=== PATIENT | male | born 1950 | race Caucasian/White ===

== ENCOUNTER 2017-06-28 07:33 | Day surgery (SDC) | payer MEDICARE, OTHER ==
[~2017-06-28] VITALS: Ht 193 cm; Wt 106.6 kg
[~2017-06-28 07:33] MED LIST: ALEN70TA3 PO; AMLO5TAB88 PO; ATOR20TA PO; CHOL100046 PO; COREG PO; LAMIS2 PO; RIVA20TA PO
[2017-06-28] MEDS ORDERED: LOSA50TA20 PO (08:48)
[2017-06-28] MEDS ORDERED: DOXA2TAB PO (08:48)
[2017-06-28] MEDS ORDERED: ASPI-1159 PO (08:48)
[2017-06-28] MEDS ORDERED: ASPIRIN/SOD BICARB/CITRIC ACID 324MG TAB EFF ONE (08:50)
[2017-06-28] MEDS ORDERED: MIDAZOLAM HCL 2 MG/2 ML VIAL ONE ×2 (09:18→09:50)
[2017-06-28] MEDS ORDERED: LIDOCAINE HCL 1% 20ML VIAL (Pyxis) INJ ONE (09:19)
[2017-06-28] MEDS ORDERED: IODIXANOL 320MG/ML 100 ML BOTTLE IV ONE ×2 (09:19→10:52)
[2017-06-28] MEDS ORDERED: FENTANYL CITRATE/PF 50MCG/ML 2ML VIAL ONE (09:19)
[2017-06-28] MEDS ORDERED: HEPARIN SODIUM 1,000 UNIT/1ML VIAL IV ONE ×3 (09:32→10:33)
[2017-06-28] MEDS ORDERED: HYDROMORPHONE HCL/PF 2MG/ML (OR) ONE (10:12)
[2017-06-28] MEDS ORDERED: HYDRALAZINE 20MG/ML VIAL ONE (11:06)
[2017-06-28] MEDS ORDERED: ONDANSETRON HCL 4MG/2ML VIAL IV PRN (11:15)
[2017-06-28] MEDS ORDERED: ACETAMINOPHEN 325MG TABLET PO PRN (11:15)
[2017-06-28] MEDS ORDERED: MORPHINE SULFATE 2 MG/ML CPJ (NOT FOR IM USE) IV PRN (11:15)
[2017-06-28] MEDS ORDERED: NITROGLYCERIN 50MCG/ML 10ML VIAL (CATH LAB) IV ONE (14:38)
[2017-06-28] MEDS ORDERED: NICARDIPINE 100MCG/ML 10ML VIAL (CATH LAB) IV ONE (14:38)
== END 2017-06-28 16:01 | disposition home or self-care (01) ==
LOC: CCL 07:33
PROVIDERS: ATTEND Specialist
DX: I25.10 Atherosclerotic heart disease of native coronary artery without angina pectoris (principal); I10 Essential (primary) hypertension; Z88.0 Allergy status to penicillin; Z88.8 Allergy status to other drugs, medicaments and biological substances
CPT/HCPCS: 85347; 93458; 93571; 99152; 99153; C1769; C1887; C1893; J0360; J1170; J1644; J2250; J3010; J3490; Q9967

== ENCOUNTER 2019-11-27 06:24 | Day surgery (SDC) | payer MEDICARE, OTHER ==
[~2019-11-27 06:24] MED LIST changes: +ASPI-1497 PO; +DOXA2TAB PO; +LOSA50TA41 PO
[2019-11-27] MEDS ORDERED: COR3 MT (07:45)
[2019-11-27] MEDS ORDERED: ERGO2000 PO (07:45)
[2019-11-27] MEDS ORDERED: OLME40TA11 MT (07:45)
[2019-11-27] MEDS ORDERED: MIDAZOLAM HCL 2 MG/2 ML VIAL ONE (08:03)
[2019-11-27] MEDS ORDERED: FENTANYL CITRATE/PF 50MCG/ML 2ML VIAL ONE (08:03)
[2019-11-27] MEDS ORDERED: ASPIRIN/SOD BICARB/CITRIC ACID 324MG TAB EFF ONE (08:04)
[2019-11-27] MEDS ORDERED: LIDOCAINE HCL 1% 20ML VIAL (Pyxis) INJ ONE (08:04)
[2019-11-27] MEDS ORDERED: IOHEXOL-300 100 ML BOTTLE ONE (08:04)
[2019-11-27] MEDS ORDERED: IODIXANOL 320MG/ML 100 ML BOTTLE IV ONE ×2 (08:04→09:10)
[2019-11-27] MEDS ORDERED: ACETAMINOPHEN 325MG TABLET PO PRN (09:45)
[2019-11-27] MEDS ORDERED: ONDANSETRON HCL 4MG/2ML INJ IV PRN (09:45)
[2019-11-27] MEDS ORDERED: ATROPINE SULFATE 1MG/10ML SYR IV PRN (09:45)
[2019-11-27] MEDS ORDERED: MORPHINE SULFATE 2 MG/ML CPJ (NOT FOR IM USE) IV PRN (09:45)
[2019-11-27] MEDS ORDERED: AMLODIPINE 5MG TABLET PO SCH (10:45)
[2019-11-27] MEDS ORDERED: NICARDIPINE 100MCG/ML 10ML VIAL (CATH LAB) IV ONE (11:51)
[2019-11-27] MEDS ORDERED: HEPARIN SODIUM 1,000 UNIT/1ML VIAL IV ONE (11:51)
[2019-11-27] MEDS ORDERED: NITROGLYCERIN 50MCG/ML 10ML VIAL (CATH LAB) IV ONE (11:51)
== END 2019-11-27 15:35 | disposition home or self-care (01) ==
LOC: CCL 06:24
PROVIDERS: ATTEND Specialist
DX: I25.10 Atherosclerotic heart disease of native coronary artery without angina pectoris (principal); I10 Essential (primary) hypertension; E78.5 Hyperlipidemia, unspecified; Z79.899 Other long term (current) drug therapy; Z79.82 Long term (current) use of aspirin; Z88.0 Allergy status to penicillin; Z88.8 Allergy status to other drugs, medicaments and biological substances; Z72.89 Other problems related to lifestyle; Z82.49 Family history of ischemic heart disease and other diseases of the circulatory system
CPT/HCPCS: 85347; 93454; 93571; 99152; 99153; C1769; C1887; C1893; J1644; J2250; J3010; J3490; Q9967; G0500

== ENCOUNTER 2020-01-08 09:06 | Inpatient (IN) | payer MEDICARE, OTHER ==
[~2020-01-08] VITALS: Ht 182.9 cm; Wt 110.8 kg
[~2020-01-08 09:06] MED LIST changes: +COR3 MT; +ERGO2000 PO; +OLME40TA11 MT
[2020-01-08] MEDS ORDERED: CARV6.2548 PO (10:07)
[2020-01-08] MEDS ORDERED: NITR0.4T49 SL (10:07)
[2020-01-08] MEDS ORDERED: ERGO500013 PO (10:07)
[2020-01-08] MEDS ORDERED: DOCU-138 PO (10:07)
[2020-01-08] MEDS ORDERED: IODIXANOL 320MG/ML 100 ML BOTTLE IV ONE ×2 (12:53→14:00)
[2020-01-08] MEDS ORDERED: LIDOCAINE HCL 1% 20ML VIAL (Pyxis) INJ ONE (12:54)
[2020-01-08] MEDS ORDERED: FENTANYL CITRATE/PF 50MCG/ML 2ML VIAL ONE (12:54)
[2020-01-08] MEDS ORDERED: MIDAZOLAM HCL 2 MG/2 ML VIAL ONE (12:54)
[2020-01-08] MEDS ORDERED: HEPARIN SODIUM 1,000 UNIT/1ML VIAL IV ONE (13:18)
[2020-01-08] MEDS ORDERED: IOHEXOL-300 100 ML BOTTLE ONE (13:53)
[2020-01-08 13:59] LABS: CHLORIDE 100 mEq/L (98-107)
[2020-01-08] MEDS ORDERED: CLOPIDOGREL 75MG TABLET ONE (14:05)
[2020-01-08] MEDS ORDERED: ASPIRIN/SOD BICARB/CITRIC ACID 324MG TAB EFF ONE (14:21)
[2020-01-08] MEDS ORDERED: ATROPINE SULFATE 1MG/10ML SYR IV PRN (14:30)
[2020-01-08] MEDS ORDERED: CLOPIDOGREL 75MG TABLET PO NR (14:30)
[2020-01-08] MEDS ORDERED: ONDANSETRON HCL 4MG/2ML INJ IV PRN (14:30)
[2020-01-08] MEDS ORDERED: ACETAMINOPHEN 325MG TABLET PO PRN (17:49)
[2020-01-08] MEDS ORDERED: MORPHINE SULFATE 2 MG/ML CPJ (NOT FOR IM USE) IV PRN ×2 (17:50)
[2020-01-08] MEDS ORDERED: LOSARTAN POTASSIUM 25 MG TABLET PO SCH (18:30)
[2020-01-08 18:41] VITALS: BP 192/66
[2020-01-08 20:00] VITALS: BP 165/87
[2020-01-08 20:40] VITALS: BP 162/87
[2020-01-08] MEDS ORDERED: ATORVASTATIN CALCIUM 20MG TABLET PO SCH (21:00)
[2020-01-08] MEDS: CARVEDILOL 3.125 MG TABLET PO SCH (21:05)
[2020-01-08 21:36] LABS: HEMATOCRIT 38.1 % (42.0-52.0); MEAN CORPUSCULAR HEMOGLOBIN 33.7 pg (28.0-32.0); MEAN CORPUSCULAR VOLUME 98.4 fL (80.0-94.0); PLATELET 199 x1000/uL (130-400); RED BLOOD CELL COUNT 3.87 mill/uL (4.7-6.1)
[2020-01-08 21:42] VITALS: BP 151/77
[2020-01-09] VITALS (9 sets, daily range): BP systolic 156–181; BP diastolic 64–97
[2020-01-09] MEDS: HYDRALAZINE 20MG/ML VIAL IV PRN ×2 (04:15→14:49)
[2020-01-09 06:22] LABS: HEMOGLOBIN. 13.6 g/dL (14.0-18.0); MEAN CORPUSCULAR HEMOGLOBIN 33.6 pg (28.0-32.0); MEAN CORPUSCULAR VOLUME 98.9 fL (80.0-94.0); MEAN PLATELET VOLUME 7.6 fl (7.4-10.4); PLATELET 198 x1000/uL (130-400); RED BLOOD CELL COUNT 4.05 mill/uL (4.7-6.1); RED CELL DISTRIBUTION WIDTH 13.1 % (11.6-14.6)
[2020-01-09 06:52] LABS: CHLORIDE 99 mEq/L (98-107)
[2020-01-09] MEDS ORDERED: LOSARTAN POTASSIUM 50 MG TABLET PO SCH (09:00)
[2020-01-09] MEDS ORDERED: CLOPIDOGREL 75MG TABLET PO SCH (09:00)
[2020-01-09] MEDS: CARVEDILOL 3.125 MG TABLET PO SCH (09:14)
[2020-01-09 10:45] LABS: CLARITY URINE CLEAR (CLEAR); COLOR URINE YELLOW (YELLOW); KETONES URINE 2+ (NEGATIVE); LEUKOCYTE ESTERASE URINE NEGATIVE (NEGATIVE); NITRITE URINE NEGATIVE (NEGATIVE); OCCULT BLOOD URINE NEGATIVE (NEGATIVE); PH URINE 8.5 (4.5-8.0); PROTEIN URINE NEGATIVE (NEGATIVE); SPECIFIC GRAVITY URINE 1.017 (1.005-1.030)
[2020-01-09] MEDS ORDERED: CLOP75TA4 PO (14:01)
[2020-01-09] MEDS ORDERED: RIVAROXABAN 15 MG TABLET PO SCH (17:20)
[2020-01-10 04:42] LABS: PLATELET ESTIMATE NORMAL
== END 2020-01-09 15:28 | disposition home or self-care (01) | DRG 247 ==
LOC: CCL 09:06 → 3WST 09:07
PROVIDERS: ADMIT Specialist; ATTEND Specialist
PROC: 027035Z Dilation of Coronary Artery, One Artery with Two Drug-eluting Intraluminal Devices, Percutaneous Approach (ICD-10-PCS; principal; 2020-01-08)
PROC: 02C03ZZ Extirpation of Matter from Coronary Artery, One Artery, Percutaneous Approach (ICD-10-PCS; 2020-01-08)
PROC: 4A023N7 Measurement of Cardiac Sampling and Pressure, Left Heart, Percutaneous Approach (ICD-10-PCS; 2020-01-08)
PROC: B2111ZZ Fluoroscopy of Multiple Coronary Arteries using Low Osmolar Contrast (ICD-10-PCS; 2020-01-08)
PROC: 4A033BC Measurement of Arterial Pressure, Coronary, Percutaneous Approach (ICD-10-PCS; 2020-01-08)
DX: I25.110 Atherosclerotic heart disease of native coronary artery with unstable angina pectoris (principal); E22.2 Syndrome of inappropriate secretion of antidiuretic hormone; C61 Malignant neoplasm of prostate; I10 Essential (primary) hypertension; I48.91 Unspecified atrial fibrillation; E78.5 Hyperlipidemia, unspecified; K70.30 Alcoholic cirrhosis of liver without ascites; F10.10 Alcohol abuse, uncomplicated; I73.9 Peripheral vascular disease, unspecified; Z79.01 Long term (current) use of anticoagulants; Z85.46 Personal history of malignant neoplasm of prostate; Z82.49 Family history of ischemic heart disease and other diseases of the circulatory system; Z92.3 Personal history of irradiation; Z79.811 Long term (current) use of aromatase inhibitors; Z79.52 Long term (current) use of systemic steroids; Z79.84 Long term (current) use of oral hypoglycemic drugs; Z79.83 Long term (current) use of bisphosphonates; Z79.82 Long term (current) use of aspirin; Z79.02 Long term (current) use of antithrombotics/antiplatelets; Z79.4 Long term (current) use of insulin; Z88.0 Allergy status to penicillin; Z91.018 Allergy to other foods; Z79.899 Other long term (current) drug therapy; Z87.81 Personal history of (healed) traumatic fracture
CPT/HCPCS: 36415; 80048; 81003; 83935; 85025; 85027; 85347; 92928; 93005; 93454; 93571; C1769; C1874; C1887; C1893; J0360; J1644; J2250; J3010; J3490; Q9967

== ENCOUNTER 2020-05-11 22:13 | Inpatient (IN) | payer MEDICARE, OTHER ==
[~2020-05-11] VITALS: Ht 182.9 cm; Wt 101.7 kg
[~2020-05-11 22:13] MED LIST changes: -AMLO5TAB88 PO; +CARV6.2548 PO; -CHOL100046 PO; -COREG PO; +DOCU-138 PO; -ERGO2000 PO; +ERGO500013 PO; -LAMIS2 PO; -LOSA50TA41 PO; +NITR0.4T49 SL
[2020-05-11] MEDS ORDERED: SODIUM CHLORIDE 0.9% 1,000 ML IV ONE (23:25)
[2020-05-11] MEDS ORDERED: ONDANSETRON HCL 4MG/2ML INJ IV STA (23:25)
[2020-05-11] MEDS ORDERED: MORPHINE SULFATE 4 MG/ML CPJ (NOT FOR IM USE) IV STA (23:25)
[2020-05-12 00:04] LABS: HEMATOCRIT. 36.6 % (42.0-52.0); HEMOGLOBIN. 12.9 g/dL (14.0-18.0); MEAN CORPUSCULAR HEMOGLOBIN 34.6 pg (28.0-32.0); MEAN CORPUSCULAR VOLUME 98.4 fL (80.0-94.0); MEAN PLATELET VOLUME 7.3 fl (7.4-10.4); PLATELET 146 x1000/uL (130-400); RED BLOOD CELL COUNT 3.72 mill/uL (4.7-6.1); RED CELL DISTRIBUTION WIDTH 14.1 % (11.6-14.6)
[2020-05-12 00:14] LABS: CHLORIDE 93 mEq/L (98-107)
[2020-05-12 04:36] LABS: PLATELET ESTIMATE NORMAL
[2020-05-12] MEDS ORDERED: MORPHINE SULFATE 4 MG/ML CPJ (NOT FOR IM USE) IV ONE (05:30)
[2020-05-12] MEDS ORDERED: ONDANSETRON HCL 4MG/2ML INJ IV PRN (10:30)
[2020-05-12] MEDS ORDERED: CLONIDINE 0.1MG TABLET PO PRN (10:30)
[2020-05-12] MEDS ORDERED: ACETAMINOPHEN 325MG TABLET PO PRN (10:30)
[2020-05-12] MEDS ORDERED: FOLIC ACID 1 MG, THIAMINE HCL 100 MG, MVI, ADULT NO.1 10 ML in DEXTROSE 5% WATER 1,000 ML IV ONE ×4 (10:30)
[2020-05-12] MEDS: CARVEDILOL 6.25 MG TABLET PO SCH ×2 (12:00→22:38)
[2020-05-12] MEDS: LISINOPRIL 10MG TABLET PO SCH (12:00)
[2020-05-12] MEDS: CLOPIDOGREL 75MG TABLET PO SCH (13:45)
[2020-05-12] MEDS ORDERED: ASPIRIN 81MG EC TABLET PO NR (13:45)
[2020-05-12] MEDS: CHLORDIAZEPOXIDE 25MG CAPSULE PO SCH ×2 (14:00→22:38)
[2020-05-12] MEDS: DOXAZOSIN MESYLATE 2MG TABLET PO SCH (17:00)
[2020-05-12] MEDS: RIVAROXABAN 20 MG TABLET PO SCH (17:00)
[2020-05-12] MEDS: HYDROCODONE/APAP 7.5/325MG 1 TAB TABLET PO PRN (20:13)
[2020-05-12] MEDS ORDERED: ATORVASTATIN CALCIUM 20MG TABLET PO SCH (21:00)
[2020-05-12 21:35] VITALS: BP 154/86
[2020-05-12 22:00] VITALS: BP 154/86
[2020-05-12] MEDS: DOCUSATE SODIUM 100MG CAPSULE PO SCH (22:38)
[2020-05-13] VITALS: BP_SYST 127; BP_SYST 134; BP_DIAS 61; BP_DIAS 71
[2020-05-13 04:00] VITALS: BP 154/79
[2020-05-13] MEDS: HYDROCODONE/APAP 7.5/325MG 1 TAB TABLET PO PRN ×2 (05:44→18:23)
[2020-05-13] MEDS: CHLORDIAZEPOXIDE 25MG CAPSULE PO SCH ×3 (05:45→23:02)
[2020-05-13 06:31] LABS: CHLORIDE 95 mEq/L (98-107)
[2020-05-13 06:35] LABS: HEMATOCRIT. 37.3 % (42.0-52.0); HEMOGLOBIN. 13.1 g/dL (14.0-18.0); MEAN CORPUSCULAR HEMOGLOBIN 34.5 pg (28.0-32.0); MEAN CORPUSCULAR VOLUME 98.3 fL (80.0-94.0); MEAN PLATELET VOLUME 7.6 fl (7.4-10.4); PLATELET 134 x1000/uL (130-400); RED BLOOD CELL COUNT 3.79 mill/uL (4.7-6.1); RED CELL DISTRIBUTION WIDTH 13.9 % (11.6-14.6)
[2020-05-13 06:45] LABS: LDL CHOLESTEROL 30 mg/dL (5-100)
[2020-05-13 06:47] LABS: HDL CHOLESTEROL 89 mg/dL (40-59)
[2020-05-13 08:29] VITALS: BP 158/81
[2020-05-13] MEDS: CLOPIDOGREL 75MG TABLET PO SCH (08:58)
[2020-05-13] MEDS: LISINOPRIL 10MG TABLET PO SCH (08:59)
[2020-05-13] MEDS: DOXAZOSIN MESYLATE 2MG TABLET PO SCH ×2 (09:00→18:15)
[2020-05-13] MEDS: CARVEDILOL 6.25 MG TABLET PO SCH ×2 (09:00→23:02)
[2020-05-13 11:34] VITALS: BP 139/76
[2020-05-13 16:25] VITALS: BP 142/69
[2020-05-13 16:28] LABS: PLATELET ESTIMATE NORMAL
[2020-05-13] MEDS: RIVAROXABAN 20 MG TABLET PO SCH (18:15)
[2020-05-13 20:00] VITALS: BP 132/57
[2020-05-13] MEDS: DOCUSATE SODIUM 100MG CAPSULE PO SCH (23:02)
[2020-05-14] VITALS: BP 124/62
[2020-05-14] MEDS: HYDROCODONE/APAP 7.5/325MG 1 TAB TABLET PO PRN (01:45)
[2020-05-14 04:00] VITALS: BP 136/40
[2020-05-14] MEDS: CHLORDIAZEPOXIDE 25MG CAPSULE PO SCH ×3 (04:54→20:28)
[2020-05-14 07:07] LABS: HEMATOCRIT. 35.4 % (42.0-52.0); HEMOGLOBIN. 12.2 g/dL (14.0-18.0); MEAN CORPUSCULAR HEMOGLOBIN 34.3 pg (28.0-32.0); MEAN CORPUSCULAR VOLUME 99.6 fL (80.0-94.0); PLATELET 126 x1000/uL (130-400); RED BLOOD CELL COUNT 3.56 mill/uL (4.7-6.1); RED CELL DISTRIBUTION WIDTH 13.8 % (11.6-14.6)
[2020-05-14 07:29] LABS: CHLORIDE 94 mEq/L (98-107)
[2020-05-14 07:41] LABS: PHOSPHORUS 2.5 mg/dL (2.5-4.9)
[2020-05-14 08:00] VITALS: BP 156/78
[2020-05-14] MEDS: CARVEDILOL 6.25 MG TABLET PO SCH ×2 (09:17→20:28)
[2020-05-14] MEDS: DOXAZOSIN MESYLATE 2MG TABLET PO SCH ×2 (09:17→16:47)
[2020-05-14] MEDS: CLOPIDOGREL 75MG TABLET PO SCH (09:17)
[2020-05-14] MEDS: LISINOPRIL 10MG TABLET PO SCH (09:17)
[2020-05-14] MEDS: MAGNESIUM OXIDE 400MG TABLET PO SCH ×2 (11:30→20:28)
[2020-05-14 12:00] VITALS: BP 127/59
[2020-05-14 13:04] LABS: PLATELET ESTIMATE SLIGHTLY DECREASED
[2020-05-14 16:45] VITALS: BP 133/72
[2020-05-14] MEDS: RIVAROXABAN 20 MG TABLET PO SCH (16:47)
[2020-05-14 20:00] VITALS: BP 109/56
[2020-05-14] MEDS: DOCUSATE SODIUM 100MG CAPSULE PO SCH (20:28)
[2020-05-15] VITALS (7 sets, daily range): BP systolic 94–151; BP diastolic 53–77
[2020-05-15 05:19] LABS: CLARITY URINE CLEAR (CLEAR); COLOR URINE DARK YELLOW (YELLOW); KETONES URINE TRACE (NEGATIVE); LEUKOCYTE ESTERASE URINE TRACE (NEGATIVE); NITRITE URINE NEGATIVE (NEGATIVE); OCCULT BLOOD URINE NEGATIVE (NEGATIVE); PH URINE 6.5 (4.5-8.0); PROTEIN URINE 1+ (NEGATIVE); SPECIFIC GRAVITY URINE 1.017 (1.005-1.030)
[2020-05-15 05:33] LABS: *AMPHETAMINES SCREEN URINE NEGATIVE (NEGATIVE); *BARBITURATES SCREEN URINE NEGATIVE (NEGATIVE); *BENZODIAZEPINES SCREEN URINE PRESUMTIVE POSITIVE (NEGATIVE); *COCAINE SCREEN URINE NEGATIVE (NEGATIVE); METHADONE URINE SCREEN NEGATIVE (NEGATIVE); OPIATES URINE SCREEN PRESUMTIVE POSITIVE (NEGATIVE)
[2020-05-15 05:34] LABS: CANNABINOID URINE SCREEN NEGATIVE (NEGATIVE); PHENCYCLIDINE URINE SCREEN NEGATIVE (NEGATIVE)
[2020-05-15 05:39] LABS: CHLORIDE 96 mEq/L (98-107)
[2020-05-15] MEDS: CHLORDIAZEPOXIDE 25MG CAPSULE PO SCH ×3 (05:56→21:11)
[2020-05-15 06:41] LABS: BASOPHILS % 1.3 % (0.0-2.0); EOSINOPHILS % 3.4 % (0.0-5.0); HEMATOCRIT. 33.4 % (42.0-52.0); HEMOGLOBIN. 11.7 g/dL (14.0-18.0); LYMPHOCYTES % 8.3 % (20.0-50.0); MEAN CORPUSCULAR HEMOGLOBIN 34.8 pg (28.0-32.0); MEAN CORPUSCULAR VOLUME 99.6 fL (80.0-94.0); MEAN PLATELET VOLUME 8.1 fl (7.4-10.4); MONOCYTES % 14.2 % (2.0-8.0); NEUTROPHILS % 72.8 % (40.0-76.0); PLATELET 144 x1000/uL (130-400); RED BLOOD CELL COUNT 3.36 mill/uL (4.7-6.1); RED CELL DISTRIBUTION WIDTH 13.7 % (11.6-14.6)
[2020-05-15] MEDS: CARVEDILOL 6.25 MG TABLET PO SCH ×2 (09:41→21:11)
[2020-05-15] MEDS: LISINOPRIL 10MG TABLET PO SCH (09:41)
[2020-05-15] MEDS: CLOPIDOGREL 75MG TABLET PO SCH (09:41)
[2020-05-15] MEDS: FOLIC ACID 1MG TABLET PO SCH (09:41)
[2020-05-15] MEDS: DOXAZOSIN MESYLATE 2MG TABLET PO SCH ×2 (09:41→18:57)
[2020-05-15] MEDS: THIAMINE HCL 100MG TABLET PO SCH (09:42)
[2020-05-15] MEDS: MAGNESIUM OXIDE 400MG TABLET PO SCH ×2 (09:42→21:11)
[2020-05-15] MEDS ORDERED: TAMSULOSIN HCL 0.4MG SR CAPSULE PO SCH (11:15)
[2020-05-15] MEDS ORDERED: DIAZEPAM 5 MG TABLET PO PRN (14:30)
[2020-05-15] MEDS: RIVAROXABAN 20 MG TABLET PO SCH (18:57)
[2020-05-15] MEDS: DOCUSATE SODIUM 100MG CAPSULE PO SCH ×2 (21:00→21:11)
[2020-05-16] VITALS: BP 149/74
[2020-05-16] MEDS: DEXAMETHASONE 4MG/ML 1ML VIAL IV SCH ×5 (00:31→22:59)
[2020-05-16 04:00] VITALS: BP 140/86
[2020-05-16] MEDS: CHLORDIAZEPOXIDE 25MG CAPSULE PO SCH ×3 (05:15→21:08)
[2020-05-16 06:13] LABS: HEMOGLOBIN. 12.1 g/dL (14.0-18.0); MEAN CORPUSCULAR HEMOGLOBIN 34.1 pg (28.0-32.0); MEAN CORPUSCULAR VOLUME 98.8 fL (80.0-94.0); MEAN PLATELET VOLUME 7.5 fl (7.4-10.4); PLATELET 178 x1000/uL (130-400); RED BLOOD CELL COUNT 3.54 mill/uL (4.7-6.1); RED CELL DISTRIBUTION WIDTH 13.8 % (11.6-14.6)
[2020-05-16 06:31] LABS: CHLORIDE 99 mEq/L (98-107)
[2020-05-16 06:36] LABS: PHOSPHORUS 4.2 mg/dL (2.5-4.9)
[2020-05-16 08:00] VITALS: BP 150/83
[2020-05-16] MEDS ORDERED: ASPIRIN 81MG EC TABLET PO SCH (09:00)
[2020-05-16] MEDS: DOXAZOSIN MESYLATE 2MG TABLET PO SCH ×2 (09:23→17:45)
[2020-05-16] MEDS: CARVEDILOL 6.25 MG TABLET PO SCH ×2 (09:24→21:08)
[2020-05-16] MEDS: THIAMINE HCL 100MG TABLET PO SCH (09:25)
[2020-05-16] MEDS: FOLIC ACID 1MG TABLET PO SCH (09:25)
[2020-05-16] MEDS: CLOPIDOGREL 75MG TABLET PO SCH (09:25)
[2020-05-16] MEDS: LISINOPRIL 10MG TABLET PO SCH (09:25)
[2020-05-16] MEDS: MAGNESIUM OXIDE 400MG TABLET PO SCH ×2 (09:25→21:08)
[2020-05-16 10:41] LABS: PLATELET ESTIMATE NORMAL
[2020-05-16 12:00] VITALS: BP 148/91
[2020-05-16 16:00] VITALS: BP 139/82
[2020-05-16] MEDS ORDERED: LORAZEPAM 2MG/ML CPJ IV PRN (17:30)
[2020-05-16 19:51] LABS: INR 1.3; PROTHROMBIN TIME 13.7 sec (9.6-11.0)
[2020-05-16 20:00] VITALS: BP 154/86
[2020-05-16] MEDS: DOCUSATE SODIUM 100MG CAPSULE PO SCH ×2 (21:00→21:07)
[2020-05-17] VITALS: BP 146/65
[2020-05-17 04:00] VITALS: BP 145/78
[2020-05-17 06:13] LABS: CHLORIDE 102 mEq/L (98-107)
[2020-05-17 06:16] LABS: HEMATOCRIT. 35.7 % (42.0-52.0); HEMOGLOBIN. 12.1 g/dL (14.0-18.0); MEAN CORPUSCULAR HEMOGLOBIN 33.7 pg (28.0-32.0); MEAN PLATELET VOLUME 7.9 fl (7.4-10.4); PLATELET 201 x1000/uL (130-400); RED CELL DISTRIBUTION WIDTH 13.6 % (11.6-14.6)
[2020-05-17 06:22] LABS: PHOSPHORUS 3.7 mg/dL (2.5-4.9)
[2020-05-17] MEDS: CHLORDIAZEPOXIDE 25MG CAPSULE PO SCH (06:46)
[2020-05-17] MEDS: DEXAMETHASONE 4MG/ML 1ML VIAL IV SCH ×2 (07:16→12:10)
[2020-05-17 08:00] VITALS: BP 146/7
[2020-05-17] MEDS ORDERED: MULTIVITAMINS,THER W-MINERALS TABLET PO SCH (09:00)
[2020-05-17] MEDS ORDERED: FOLIC ACID 1MG TABLET PO SCH (09:00)
[2020-05-17] MEDS ORDERED: ERGOCALCIFEROL 50000UNITS CAPSULE PO SCH (09:00)
[2020-05-17] MEDS: DOXAZOSIN MESYLATE 2MG TABLET PO SCH (09:18)
[2020-05-17] MEDS: THIAMINE HCL 100MG TABLET PO SCH (09:18)
[2020-05-17] MEDS: MAGNESIUM OXIDE 400MG TABLET PO SCH (09:18)
[2020-05-17] MEDS: LISINOPRIL 10MG TABLET PO SCH (09:19)
[2020-05-17] MEDS: CARVEDILOL 6.25 MG TABLET PO SCH (09:19)
[2020-05-17 10:40] VITALS: BP 146/75
[2020-05-17] MEDS ORDERED: CLOPIDOGREL 75MG TABLET PO SCH (11:45)
[2020-05-17] MEDS ORDERED: ASPIRIN 81MG TABLET PO SCH (11:45)
[2020-05-17 12:00] VITALS: BP 135/81
[2020-05-17] MEDS ORDERED: LACTULOSE 20G/30ML UDC PO SCH (12:00)
[2020-05-17 16:42] LABS: PLATELET ESTIMATE NORMAL
[2020-05-17] MEDS ORDERED: RIVAROXABAN 20 MG TABLET PO SCH (17:00)
[2020-05-17] MEDS ORDERED: CHLORDIAZEPOXIDE 25MG CAPSULE PO SCH (22:00)
== END 2020-05-17 16:40 | DRG 73 ==
LOC: ER 22:13 → 6WST 05-12 01:56 → EDBEDREQ 05-12 02:02 → EDBEDREQTM 05-12 02:02 → EDBEDREQDT 05-12 02:02 → EDBEDREQ 05-12 02:03 → ENRESERV 05-12 19:59
PROVIDERS: ADMIT Internal Medicine; ATTEND Internal Medicine
PROC: 4A10X4Z Monitoring of Central Nervous Electrical Activity, External Approach (ICD-10-PCS; principal; 2020-05-14)
DX: G90.8 Other disorders of autonomic nervous system (principal); G92 Toxic encephalopathy; E22.2 Syndrome of inappropriate secretion of antidiuretic hormone; I48.91 Unspecified atrial fibrillation; E11.40 Type 2 diabetes mellitus with diabetic neuropathy, unspecified; D69.6 Thrombocytopenia, unspecified; E78.00 Pure hypercholesterolemia, unspecified; E78.5 Hyperlipidemia, unspecified; Z96.651 Presence of right artificial knee joint; I25.10 Atherosclerotic heart disease of native coronary artery without angina pectoris; K70.30 Alcoholic cirrhosis of liver without ascites; Z96.642 Presence of left artificial hip joint; Y90.8 Blood alcohol level of 240 mg/100 ml or more; G62.9 Polyneuropathy, unspecified; F10.129 Alcohol abuse with intoxication, unspecified; E11.51 Type 2 diabetes mellitus with diabetic peripheral angiopathy without gangrene; L71.1 Rhinophyma; M48.061 Spinal stenosis, lumbar region without neurogenic claudication; M47.816 Spondylosis without myelopathy or radiculopathy, lumbar region; M48.02 Spinal stenosis, cervical region; M24.549 Contracture, unspecified hand; S00.412A Abrasion of left ear, initial encounter; S00.81XA Abrasion of other part of head, initial encounter; S80.12XA Contusion of left lower leg, initial encounter; W18.39XA Other fall on same level, initial encounter; R33.9 Retention of urine, unspecified; Z95.5 Presence of coronary angioplasty implant and graft; Z79.01 Long term (current) use of anticoagulants; Z88.0 Allergy status to penicillin; Z91.018 Allergy to other foods; Z79.82 Long term (current) use of aspirin; Z79.899 Other long term (current) drug therapy; Z79.83 Long term (current) use of bisphosphonates; Z79.02 Long term (current) use of antithrombotics/antiplatelets; Z91.81 History of falling; Z82.49 Family history of ischemic heart disease and other diseases of the circulatory system; Z92.3 Personal history of irradiation; Z85.46 Personal history of malignant neoplasm of prostate; Y93.89 Activity, other specified; Y92.89 Other specified places as the place of occurrence of the external cause; Y99.8 Other external cause status; I10 Essential (primary) hypertension; M50.21 Other cervical disc displacement, high cervical region
CPT/HCPCS: 36415; 70544; 70553; 71045; 72141; 72148; 72170; 72192; 73562; 73590; 73700; 80048; 80053; 80061; 80305; 80320; 81003; 82533; 82962; 83735; 83930; 84100; 84443; 84484; 85025; 85384; 93005; 93306; 93880; 93970; 96361; 96375; 96376; 97162; 97166; 97530; 99285; J1100; J2270; J2405; J3411; J3490; J7030; J7070; G0480

== ENCOUNTER 2020-05-17 16:35 | Inpatient (IN) | payer MEDICARE, OTHER ==
[~2020-05-17] VITALS: Ht 182.9 cm; Wt 102.1 kg
[2020-05-17 16:42] VITALS: BP 126/83
[2020-05-17] MEDS ORDERED: ACETAMINOPHEN 325MG TABLET PO PRN (17:30)
[2020-05-17] MEDS ORDERED: ONDANSETRON 4MG ODT PO PRN (17:30)
[2020-05-17] MEDS ORDERED: CLONIDINE 0.1MG TABLET PO PRN (17:30)
[2020-05-17] MEDS ORDERED: LORAZEPAM 1MG TABLET PO PRN (17:30)
[2020-05-17 18:14] VITALS: BP 126/83
[2020-05-17] MEDS ORDERED: LACTULOSE 20G/30ML UDC PO PRN (18:30)
[2020-05-17] MEDS: DEXAMETHASONE 4MG/ML 1ML VIAL IV SCH ×2 (18:51→23:05)
[2020-05-17] MEDS: DOXAZOSIN MESYLATE 2MG TABLET PO SCH (18:51)
[2020-05-17] MEDS: RIVAROXABAN 20 MG TABLET PO SCH (18:51)
[2020-05-17 20:00] VITALS: BP 146/77
[2020-05-17] MEDS: MAGNESIUM OXIDE 400MG TABLET PO SCH (20:34)
[2020-05-17] MEDS: CARVEDILOL 6.25 MG TABLET PO SCH (20:35)
[2020-05-17] MEDS: DOCUSATE SODIUM 100MG CAPSULE PO SCH (20:35)
[2020-05-17] MEDS ORDERED: LACTULOSE 20G/30ML UDC PO SCH (21:00)
[2020-05-18] MEDS: DEXAMETHASONE 4MG/ML 1ML VIAL IV SCH ×3 (05:47→17:13)
[2020-05-18 06:16] LABS: CHLORIDE 106 mEq/L (98-107)
[2020-05-18 06:21] LABS: PHOSPHORUS 3.5 mg/dL (2.5-4.9)
[2020-05-18 06:30] LABS: HEMATOCRIT. 40.7 % (42.0-52.0); HEMOGLOBIN. 13.6 g/dL (14.0-18.0); MEAN CORPUSCULAR HEMOGLOBIN 33.3 pg (28.0-32.0); MEAN CORPUSCULAR VOLUME 99.4 fL (80.0-94.0); MEAN PLATELET VOLUME 8.3 fl (7.4-10.4); PLATELET 253 x1000/uL (130-400); RED BLOOD CELL COUNT 4.09 mill/uL (4.7-6.1)
[2020-05-18 07:39] VITALS: BP 147/81
[2020-05-18] MEDS: CLOPIDOGREL 75MG TABLET PO SCH (08:30)
[2020-05-18] MEDS: MULTIVITAMINS,THER W-MINERALS TABLET PO SCH (08:30)
[2020-05-18] MEDS: CARVEDILOL 6.25 MG TABLET PO SCH ×2 (08:30→21:52)
[2020-05-18] MEDS: MAGNESIUM OXIDE 400MG TABLET PO SCH ×2 (08:30→21:51)
[2020-05-18] MEDS: FOLIC ACID 1MG TABLET PO SCH (08:30)
[2020-05-18] MEDS: DOXAZOSIN MESYLATE 2MG TABLET PO SCH ×2 (08:30→17:13)
[2020-05-18] MEDS: LISINOPRIL 10MG TABLET PO SCH (08:30)
[2020-05-18] MEDS: ASPIRIN 81MG TABLET PO SCH (08:30)
[2020-05-18] MEDS: THIAMINE HCL 100MG TABLET PO SCH (08:30)
[2020-05-18 10:32] LABS: PLATELET ESTIMATE NORMAL
[2020-05-18] MEDS: RIVAROXABAN 20 MG TABLET PO SCH (17:13)
[2020-05-18 20:00] VITALS: BP 142/76
[2020-05-18] MEDS: DOCUSATE SODIUM 100MG CAPSULE PO SCH (21:53)
[2020-05-19] MEDS: DEXAMETHASONE 4MG/ML 1ML VIAL IV SCH ×5 (00:25→23:15)
[2020-05-19 06:49] LABS: CHLORIDE 104 mEq/L (98-107)
[2020-05-19 06:55] LABS: HEMATOCRIT. 36.4 % (42.0-52.0); HEMOGLOBIN. 12.4 g/dL (14.0-18.0); MEAN CORPUSCULAR HEMOGLOBIN 33.5 pg (28.0-32.0); MEAN CORPUSCULAR VOLUME 98.8 fL (80.0-94.0); MEAN PLATELET VOLUME 8.1 fl (7.4-10.4); PHOSPHORUS 3.9 mg/dL (2.5-4.9); PLATELET 255 x1000/uL (130-400); RED BLOOD CELL COUNT 3.69 mill/uL (4.7-6.1); RED CELL DISTRIBUTION WIDTH 13.8 % (11.6-14.6)
[2020-05-19 08:00] VITALS: BP 160/82
[2020-05-19] MEDS: CARVEDILOL 6.25 MG TABLET PO SCH ×2 (09:08→20:51)
[2020-05-19] MEDS: MAGNESIUM OXIDE 400MG TABLET PO SCH ×2 (09:08→20:51)
[2020-05-19] MEDS: FOLIC ACID 1MG TABLET PO SCH (09:08)
[2020-05-19] MEDS: CLOPIDOGREL 75MG TABLET PO SCH (09:08)
[2020-05-19] MEDS: DOXAZOSIN MESYLATE 2MG TABLET PO SCH ×2 (09:08→18:25)
[2020-05-19] MEDS: THIAMINE HCL 100MG TABLET PO SCH (09:08)
[2020-05-19] MEDS: MULTIVITAMINS,THER W-MINERALS TABLET PO SCH (09:08)
[2020-05-19] MEDS: ASPIRIN 81MG TABLET PO SCH (09:09)
[2020-05-19] MEDS: LISINOPRIL 10MG TABLET PO SCH (09:09)
[2020-05-19 13:16] LABS: PLATELET ESTIMATE NORMAL
[2020-05-19] MEDS: RIVAROXABAN 20 MG TABLET PO SCH (18:25)
[2020-05-19 20:00] VITALS: BP 152/84
[2020-05-19] MEDS: ATORVASTATIN CALCIUM 20MG TABLET PO SCH (20:51)
[2020-05-19] MEDS: DOCUSATE SODIUM 100MG CAPSULE PO SCH (20:51)
[2020-05-20] MEDS: DEXAMETHASONE 4MG/ML 1ML VIAL IV SCH (06:57)
[2020-05-20 07:34] LABS: HEMATOCRIT. 39.2 % (42.0-52.0); HEMOGLOBIN. 13.2 g/dL (14.0-18.0); MEAN CORPUSCULAR HEMOGLOBIN 33.6 pg (28.0-32.0); MEAN CORPUSCULAR VOLUME 99.5 fL (80.0-94.0); PLATELET 273 x1000/uL (130-400); RED BLOOD CELL COUNT 3.94 mill/uL (4.7-6.1)
[2020-05-20 07:44] LABS: CHLORIDE 109 mEq/L (98-107)
[2020-05-20 07:50] LABS: PHOSPHORUS 3.8 mg/dL (2.5-4.9); TOTAL IRON BINDING CAPACITY 198 ug/dL (250-450)
[2020-05-20 07:52] LABS: CREATINE KINASE 43 IU/L (39-308)
[2020-05-20 08:18] LABS: FERRITIN 498 ng/mL (22-322); PROSTRATE SPECIFIC AG TOTAL 0.12 ng/mL (0.0-4.0)
[2020-05-20 08:28] VITALS: BP 186/93
[2020-05-20 08:33] LABS: VITAMIN B12 SERUM >2000 pg/mL pg/mL (211-911)
[2020-05-20] MEDS: LISINOPRIL 10MG TABLET PO SCH (08:39)
[2020-05-20] MEDS: MULTIVITAMINS,THER W-MINERALS TABLET PO SCH (08:39)
[2020-05-20] MEDS: MAGNESIUM OXIDE 400MG TABLET PO SCH ×2 (08:39→21:41)
[2020-05-20] MEDS: FOLIC ACID 1MG TABLET PO SCH (08:40)
[2020-05-20] MEDS: CLOPIDOGREL 75MG TABLET PO SCH (08:40)
[2020-05-20] MEDS: THIAMINE HCL 100MG TABLET PO SCH (08:40)
[2020-05-20] MEDS: CARVEDILOL 6.25 MG TABLET PO SCH ×2 (08:40→21:41)
[2020-05-20] MEDS: DOXAZOSIN MESYLATE 2MG TABLET PO SCH ×2 (08:40→16:03)
[2020-05-20 08:48] LABS: FOLIC ACID (FOLATE) SERUM > 20.00 ng/mL (>5.38)
[2020-05-20 10:33] VITALS: BP 122/74
[2020-05-20] MEDS: TAMSULOSIN HCL 0.4MG SR CAPSULE PO SCH (11:03)
[2020-05-20] MEDS: CHLORDIAZEPOXIDE 25MG CAPSULE PO SCH ×2 (13:00→21:42)
[2020-05-20 14:12] LABS: PLATELET ESTIMATE NORMAL
[2020-05-20] MEDS: RIVAROXABAN 20 MG TABLET PO SCH (16:03)
[2020-05-20] MEDS: LORAZEPAM 1MG TABLET PO PRN (16:03)
[2020-05-20] MEDS: ATORVASTATIN CALCIUM 20MG TABLET PO SCH (21:41)
[2020-05-20] MEDS: DOCUSATE SODIUM 100MG CAPSULE PO SCH (21:41)
[2020-05-21] MEDS: LORAZEPAM 1MG TABLET PO PRN (01:16)
[2020-05-21 06:31] LABS: CHLORIDE 110 mEq/L (98-107)
[2020-05-21 06:40] LABS: PHOSPHORUS 3.6 mg/dL (2.5-4.9)
[2020-05-21 06:52] LABS: BASOPHILS % 0.2 % (0.0-2.0); EOSINOPHILS % 0.1 % (0.0-5.0); HEMATOCRIT. 39.3 % (42.0-52.0); HEMOGLOBIN. 13.1 g/dL (14.0-18.0); LYMPHOCYTES % 8.1 % (20.0-50.0); MEAN CORPUSCULAR HEMOGLOBIN 33.2 pg (28.0-32.0); MEAN CORPUSCULAR VOLUME 99.8 fL (80.0-94.0); MEAN PLATELET VOLUME 8.2 fl (7.4-10.4); MONOCYTES % 11.4 % (2.0-8.0); NEUTROPHILS % 80.2 % (40.0-76.0); PLATELET 264 x1000/uL (130-400); RED BLOOD CELL COUNT 3.93 mill/uL (4.7-6.1); RED CELL DISTRIBUTION WIDTH 14.1 % (11.6-14.6)
[2020-05-21] MEDS: CHLORDIAZEPOXIDE 25MG CAPSULE PO SCH ×3 (07:57→21:36)
[2020-05-21] MEDS: DOXAZOSIN MESYLATE 2MG TABLET PO SCH ×2 (07:57→16:04)
[2020-05-21] MEDS: FOLIC ACID 1MG TABLET PO SCH (07:58)
[2020-05-21] MEDS: ASPIRIN 81MG TABLET PO SCH (07:58)
[2020-05-21] MEDS: THIAMINE HCL 100MG TABLET PO SCH (07:58)
[2020-05-21] MEDS: MAGNESIUM OXIDE 400MG TABLET PO SCH ×2 (07:58→21:35)
[2020-05-21] MEDS: MULTIVITAMINS,THER W-MINERALS TABLET PO SCH (07:58)
[2020-05-21] MEDS: CARVEDILOL 6.25 MG TABLET PO SCH ×2 (07:58→21:00)
[2020-05-21] MEDS: TAMSULOSIN HCL 0.4MG SR CAPSULE PO SCH (07:59)
[2020-05-21] MEDS: CLOPIDOGREL 75MG TABLET PO SCH (07:59)
[2020-05-21] MEDS: LISINOPRIL 10MG TABLET PO SCH (07:59)
[2020-05-21 08:17] VITALS: BP 133/55
[2020-05-21] MEDS: RIVAROXABAN 20 MG TABLET PO SCH (16:04)
[2020-05-21 16:06] VITALS: BP 124/68
[2020-05-21 20:00] VITALS: BP 105/69
[2020-05-21] MEDS: ATORVASTATIN CALCIUM 20MG TABLET PO SCH (21:35)
[2020-05-21] MEDS: DOCUSATE SODIUM 100MG CAPSULE PO SCH (21:35)
[2020-05-22] MEDS: CHLORDIAZEPOXIDE 25MG CAPSULE PO SCH ×3 (06:21→22:41)
[2020-05-22 08:00] VITALS: BP 136/81
[2020-05-22] MEDS: CARVEDILOL 6.25 MG TABLET PO SCH ×2 (10:10→22:40)
[2020-05-22] MEDS: LISINOPRIL 10MG TABLET PO SCH (10:11)
[2020-05-22] MEDS: DOXAZOSIN MESYLATE 2MG TABLET PO SCH ×2 (10:11→17:00)
[2020-05-22] MEDS: CLOPIDOGREL 75MG TABLET PO SCH (10:11)
[2020-05-22] MEDS: THIAMINE HCL 100MG TABLET PO SCH (10:11)
[2020-05-22] MEDS: TAMSULOSIN HCL 0.4MG SR CAPSULE PO SCH (10:11)
[2020-05-22] MEDS: FOLIC ACID 1MG TABLET PO SCH (10:12)
[2020-05-22] MEDS: MULTIVITAMINS,THER W-MINERALS TABLET PO SCH (10:12)
[2020-05-22] MEDS: MAGNESIUM OXIDE 400MG TABLET PO SCH ×2 (10:12→22:40)
[2020-05-22] MEDS: RIVAROXABAN 20 MG TABLET PO SCH (17:07)
[2020-05-22 20:00] VITALS: BP 114/61
[2020-05-22] MEDS: DOCUSATE SODIUM 100MG CAPSULE PO SCH (21:00)
[2020-05-22] MEDS: ATORVASTATIN CALCIUM 20MG TABLET PO SCH (22:40)
[2020-05-23 06:29] LABS: HEMATOCRIT. 36.3 % (42.0-52.0); HEMOGLOBIN. 12.1 g/dL (14.0-18.0); MEAN CORPUSCULAR HEMOGLOBIN 33.3 pg (28.0-32.0); MEAN CORPUSCULAR VOLUME 99.7 fL (80.0-94.0); MEAN PLATELET VOLUME 8.6 fl (7.4-10.4); PLATELET 230 x1000/uL (130-400); RED BLOOD CELL COUNT 3.64 mill/uL (4.7-6.1); RED CELL DISTRIBUTION WIDTH 13.7 % (11.6-14.6)
[2020-05-23] MEDS: CHLORDIAZEPOXIDE 25MG CAPSULE PO SCH (06:39)
[2020-05-23 06:51] LABS: CHLORIDE 108 mEq/L (98-107)
[2020-05-23 07:06] LABS: PHOSPHORUS 3.7 mg/dL (2.5-4.9)
[2020-05-23 08:32] VITALS: BP 138/64
[2020-05-23] MEDS: TAMSULOSIN HCL 0.4MG SR CAPSULE PO SCH (10:17)
[2020-05-23] MEDS: LISINOPRIL 10MG TABLET PO SCH (10:17)
[2020-05-23] MEDS: THIAMINE HCL 100MG TABLET PO SCH (10:18)
[2020-05-23] MEDS: FOLIC ACID 1MG TABLET PO SCH (10:18)
[2020-05-23] MEDS: MULTIVITAMINS,THER W-MINERALS TABLET PO SCH (10:18)
[2020-05-23] MEDS: ASPIRIN 81MG TABLET PO SCH (10:18)
[2020-05-23] MEDS: CLOPIDOGREL 75MG TABLET PO SCH (10:18)
[2020-05-23] MEDS: CARVEDILOL 6.25 MG TABLET PO SCH (10:18)
[2020-05-23] MEDS: MAGNESIUM OXIDE 400MG TABLET PO SCH (10:18)
[2020-05-23] MEDS: DOXAZOSIN MESYLATE 2MG TABLET PO SCH ×2 (10:18→16:58)
[2020-05-23] MEDS ORDERED: LEVOFLOXACIN 500MG TABLET PO SCH (11:00)
[2020-05-23 12:02] LABS: BG BASE EXCESS -1.5 mmol/L (-2.0-2.0); BG DEOXYHEMOGLOBIN 5.8 % (0.0-5.0); BG FRACTION INSPIRED OXYGEN 21; BG HCO3 ACT 21.7 mmol/L (22.0-26.0); BG METHEMOGLOBIN 0.2 % (0.0-1.5); BG OXYGEN SATURATION 94.1 % (92.0-98.5); BG PCO2 32.2 mmHg (35.0-45.0); BG PH 7.447 (7.350-7.450); BG PO2 69.9 mmHg (75.0-100.0); BG SAMPLE SITE RIGHT BRACHIAL; BG TOTAL HEMOGLOBIN 13.4 g/dL (12.0-18.0); BG VENT MODE ROOM AIR
[2020-05-23] MEDS ORDERED: LIDOCAINE HCL 1% 20ML VIAL (Pyxis) INJ ONE (13:24)
[2020-05-23] MEDS ORDERED: SODIUM BICARBONATE 4% (2.4MEQ) 5ML VIAL IV ONE (13:24)
[2020-05-23 14:09] VITALS: BP 16/138
[2020-05-23] MEDS ORDERED: IOHEXOL-350 100 ML BOTTLE ONE (15:06)
[2020-05-23] MEDS: RIVAROXABAN 20 MG TABLET PO SCH (16:55)
[2020-05-23 17:11] LABS: 25-HYDROXY VITAMIN D3 13 ng/mL (.)
[2020-05-23 22:16] LABS: PLATELET ESTIMATE NORMAL
[2020-05-31] MEDS ORDERED: DOCU-272 PO (04:56)
[2020-05-31] MEDS ORDERED: ATOR20TA65 PO (04:56)
[2020-05-31] MEDS ORDERED: CARV6.2548 PO (04:56)
[2020-05-31] MEDS ORDERED: RIVA20TA PO (04:56)
[2020-05-31] MEDS ORDERED: NITR0.4T (04:56)
[2020-05-31] MEDS ORDERED: DOXA2TAB2 PO (04:56)
[2020-05-31] MEDS ORDERED: OLME40TA11 PO (04:56)
[2020-05-31] MEDS ORDERED: ALEN70TA68 (04:56)
[2020-05-31] MEDS ORDERED: ATOR40TA70 PO (04:56)
[2020-05-31] MEDS ORDERED: ERGO500013 PO (04:56)
[2020-05-31] MEDS ORDERED: COR3 PO (04:56)
[2020-05-31] MEDS ORDERED: CLOP75TA33 PO (04:56)
== END 2020-05-23 17:15 | disposition short-term general hospital (02) | DRG 551 ==
PROVIDERS: ADMIT Physical Medicine & Rehabilitation Spinal Cord Injury Medicine; ATTEND Internal Medicine
PROC: 02HV33Z Insertion of Infusion Device into Superior Vena Cava, Percutaneous Approach (ICD-10-PCS; principal; 2020-05-23)
PROC: B548ZZA Ultrasonography of Superior Vena Cava, Guidance (ICD-10-PCS; 2020-05-23)
PROC: B5181ZA Fluoroscopy of Superior Vena Cava using Low Osmolar Contrast, Guidance (ICD-10-PCS; 2020-05-23)
DX: M48.02 Spinal stenosis, cervical region (principal); G93.41 Metabolic encephalopathy; R53.2 Functional quadriplegia; K59.2 Neurogenic bowel, not elsewhere classified; E87.1 Hypo-osmolality and hyponatremia; E46 Unspecified protein-calorie malnutrition; G95.29 Other cord compression; F10.239 Alcohol dependence with withdrawal, unspecified; G99.2 Myelopathy in diseases classified elsewhere; M48.061 Spinal stenosis, lumbar region without neurogenic claudication; Y90.8 Blood alcohol level of 240 mg/100 ml or more; F10.20 Alcohol dependence, uncomplicated; R26.9 Unspecified abnormalities of gait and mobility; R53.81 Other malaise; I10 Essential (primary) hypertension; E78.00 Pure hypercholesterolemia, unspecified; I48.91 Unspecified atrial fibrillation; Z96.642 Presence of left artificial hip joint; D69.6 Thrombocytopenia, unspecified; I25.10 Atherosclerotic heart disease of native coronary artery without angina pectoris; N31.9 Neuromuscular dysfunction of bladder, unspecified; D72.829 Elevated white blood cell count, unspecified; K59.00 Constipation, unspecified; J44.9 Chronic obstructive pulmonary disease, unspecified; S80.12XA Contusion of left lower leg, initial encounter; S80.11XA Contusion of right lower leg, initial encounter; R33.9 Retention of urine, unspecified; I95.1 Orthostatic hypotension; Z96.651 Presence of right artificial knee joint; M19.90 Unspecified osteoarthritis, unspecified site; E11.51 Type 2 diabetes mellitus with diabetic peripheral angiopathy without gangrene; E78.5 Hyperlipidemia, unspecified; K74.60 Unspecified cirrhosis of liver; Z79.01 Long term (current) use of anticoagulants; Z95.5 Presence of coronary angioplasty implant and graft; Z79.02 Long term (current) use of antithrombotics/antiplatelets; Z82.49 Family history of ischemic heart disease and other diseases of the circulatory system; Z85.46 Personal history of malignant neoplasm of prostate; Z92.3 Personal history of irradiation; Z79.899 Other long term (current) drug therapy; Z68.30 Body mass index [BMI] 30.0-30.9, adult; Z88.0 Allergy status to penicillin; Z91.018 Allergy to other foods; Z87.81 Personal history of (healed) traumatic fracture; Z87.891 Personal history of nicotine dependence; Z79.82 Long term (current) use of aspirin
CPT/HCPCS: 36415; 36573; 36600; 71045; 71275; 76937; 80048; 80053; 82140; 82306; 82375; 82550; 82607; 82728; 82746; 82805; 82962; 83540; 83550; 83735; 84100; 84134; 84153; 84443; 85025; 92523; 92610; 93970; 97110; 97116; 97162; 97166; 97530; 97535; C1725; J1100; J3490; Q9967; G0103

== ENCOUNTER 2020-05-23 17:59 | Inpatient (IN) | payer MEDICARE, OTHER ==
[~2020-05-23] VITALS: Ht 182.9 cm; Wt 107.5 kg
[2020-05-23 18:00] VITALS: BP 111/70
[2020-05-23 18:32] VITALS: BP 111/70
[2020-05-23 20:00] VITALS: BP 108/54
[2020-05-23] MEDS ORDERED: CLONIDINE 0.1MG TABLET PO PRN (23:30)
[2020-05-23] MEDS ORDERED: ACETAMINOPHEN 325MG TABLET PO PRN (23:30)
[2020-05-23] MEDS ORDERED: ONDANSETRON 4MG ODT PO PRN (23:30)
[2020-05-23] MEDS ORDERED: LACTULOSE 20G/30ML UDC PO PRN (23:30)
[2020-05-24] VITALS: BP 151/52
[2020-05-24 04:30] VITALS: BP 130/74
[2020-05-24] MEDS: CHLORDIAZEPOXIDE 25MG CAPSULE PO SCH ×2 (06:00→14:00)
[2020-05-24 07:01] LABS: HEMATOCRIT. 34.9 % (42.0-52.0); HEMOGLOBIN. 11.8 g/dL (14.0-18.0); MEAN CORPUSCULAR HEMOGLOBIN 33.4 pg (28.0-32.0); MEAN CORPUSCULAR VOLUME 99.2 fL (80.0-94.0); MEAN PLATELET VOLUME 8.7 fl (7.4-10.4); PLATELET 224 x1000/uL (130-400); RED BLOOD CELL COUNT 3.52 mill/uL (4.7-6.1); RED CELL DISTRIBUTION WIDTH 13.6 % (11.6-14.6)
[2020-05-24 07:05] LABS: CHLORIDE 109 mEq/L (98-107)
[2020-05-24 08:00] VITALS: BP 131/77
[2020-05-24] MEDS: FOLIC ACID 1MG TABLET PO SCH (08:52)
[2020-05-24] MEDS: CARVEDILOL 6.25 MG TABLET PO SCH ×2 (08:52→21:00)
[2020-05-24] MEDS: CLOPIDOGREL 75MG TABLET PO SCH (08:52)
[2020-05-24] MEDS: LISINOPRIL 10MG TABLET PO SCH (08:52)
[2020-05-24] MEDS: THIAMINE HCL 100MG TABLET PO SCH (08:52)
[2020-05-24] MEDS: MAGNESIUM OXIDE 400MG TABLET PO SCH ×2 (08:53→20:35)
[2020-05-24] MEDS: DOXAZOSIN MESYLATE 2MG TABLET PO SCH ×2 (08:53→17:00)
[2020-05-24] MEDS: TAMSULOSIN HCL 0.4MG SR CAPSULE PO SCH (08:53)
[2020-05-24] MEDS: DOCUSATE SODIUM 100MG CAPSULE PO SCH (08:53)
[2020-05-24] MEDS: MULTIVITAMINS,THER W-MINERALS TABLET PO SCH (08:53)
[2020-05-24] MEDS ORDERED: LEVOFLOXACIN 500MG TABLET PO SCH (11:00)
[2020-05-24 12:00] VITALS: BP 97/59
[2020-05-24 16:00] VITALS: BP 137/63
[2020-05-24] MEDS: RIVAROXABAN 20 MG TABLET PO SCH (17:03)
[2020-05-24 17:57] LABS: PLATELET ESTIMATE NORMAL
[2020-05-24 20:00] VITALS: BP 90/45
[2020-05-24] MEDS: ATORVASTATIN CALCIUM 20MG TABLET PO SCH (20:35)
[2020-05-25] VITALS: BP 118/59
[2020-05-25 04:00] VITALS: BP 125/57
[2020-05-25 07:52] LABS: HEMATOCRIT. 38.6 % (42.0-52.0); HEMOGLOBIN. 12.9 g/dL (14.0-18.0); MEAN CORPUSCULAR HEMOGLOBIN 33.6 pg (28.0-32.0); MEAN PLATELET VOLUME 8.7 fl (7.4-10.4); PLATELET 224 x1000/uL (130-400); RED BLOOD CELL COUNT 3.83 mill/uL (4.7-6.1); RED CELL DISTRIBUTION WIDTH 14.5 % (11.6-14.6)
[2020-05-25 08:00] VITALS: BP 133/64
[2020-05-25 08:04] LABS: CHLORIDE 108 mEq/L (98-107)
[2020-05-25] MEDS: FOLIC ACID 1MG TABLET PO SCH (08:57)
[2020-05-25] MEDS: CARVEDILOL 6.25 MG TABLET PO SCH ×2 (08:57→20:31)
[2020-05-25] MEDS: CLOPIDOGREL 75MG TABLET PO SCH (08:57)
[2020-05-25] MEDS: DOCUSATE SODIUM 100MG CAPSULE PO SCH (08:57)
[2020-05-25] MEDS: MULTIVITAMINS,THER W-MINERALS TABLET PO SCH (08:57)
[2020-05-25] MEDS: TAMSULOSIN HCL 0.4MG SR CAPSULE PO SCH (08:57)
[2020-05-25] MEDS: THIAMINE HCL 100MG TABLET PO SCH (08:57)
[2020-05-25] MEDS: MAGNESIUM OXIDE 400MG TABLET PO SCH ×2 (08:57→20:31)
[2020-05-25] MEDS: LISINOPRIL 10MG TABLET PO SCH (08:58)
[2020-05-25] MEDS: DOXAZOSIN MESYLATE 2MG TABLET PO SCH ×2 (08:58→17:15)
[2020-05-25 12:00] VITALS: BP 132/59
[2020-05-25 12:51] LABS: PLATELET ESTIMATE NORMAL
[2020-05-25 16:00] VITALS: BP 132/58
[2020-05-25] MEDS: RIVAROXABAN 20 MG TABLET PO SCH (17:15)
[2020-05-25 20:00] VITALS: BP 108/55
[2020-05-25] MEDS: ATORVASTATIN CALCIUM 20MG TABLET PO SCH (20:31)
[2020-05-26] VITALS: BP 107/38
[2020-05-26 04:00] VITALS: BP 99/41
[2020-05-26 06:19] LABS: HEMATOCRIT. 37.5 % (42.0-52.0); HEMOGLOBIN. 12.4 g/dL (14.0-18.0); MEAN CORPUSCULAR HEMOGLOBIN 33.2 pg (28.0-32.0); MEAN PLATELET VOLUME 8.9 fl (7.4-10.4); PLATELET 237 x1000/uL (130-400); RED BLOOD CELL COUNT 3.75 mill/uL (4.7-6.1); RED CELL DISTRIBUTION WIDTH 13.9 % (11.6-14.6)
[2020-05-26 07:32] LABS: CHLORIDE 107 mEq/L (98-107)
[2020-05-26 07:48] LABS: PHOSPHORUS 3.6 mg/dL (2.5-4.9)
[2020-05-26 08:00] VITALS: BP 129/61
[2020-05-26] MEDS: THIAMINE HCL 100MG TABLET PO SCH (08:24)
[2020-05-26] MEDS: MAGNESIUM OXIDE 400MG TABLET PO SCH ×2 (08:24→20:11)
[2020-05-26] MEDS: DOCUSATE SODIUM 100MG CAPSULE PO SCH (08:24)
[2020-05-26] MEDS: MULTIVITAMINS,THER W-MINERALS TABLET PO SCH (08:25)
[2020-05-26] MEDS: ASPIRIN 81MG TABLET PO SCH (08:25)
[2020-05-26] MEDS: FOLIC ACID 1MG TABLET PO SCH (08:25)
[2020-05-26] MEDS: CLOPIDOGREL 75MG TABLET PO SCH (08:25)
[2020-05-26] MEDS: DOXAZOSIN MESYLATE 2MG TABLET PO SCH ×2 (08:26→17:00)
[2020-05-26] MEDS: CARVEDILOL 6.25 MG TABLET PO SCH ×2 (08:26→20:12)
[2020-05-26] MEDS: TAMSULOSIN HCL 0.4MG SR CAPSULE PO SCH (08:26)
[2020-05-26] MEDS: LISINOPRIL 10MG TABLET PO SCH (08:26)
[2020-05-26 11:02] LABS: PLATELET ESTIMATE NORMAL
[2020-05-26 12:00] VITALS: BP_SYST 136; BP_SYST 145; BP_DIAS 41; BP_DIAS 61
[2020-05-26 16:00] VITALS: BP_SYST 105; BP_SYST 129; BP_DIAS 45; BP_DIAS 75
[2020-05-26] MEDS: RIVAROXABAN 20 MG TABLET PO SCH (17:07)
[2020-05-26 20:00] VITALS: BP 128/28
[2020-05-26] MEDS: ATORVASTATIN CALCIUM 20MG TABLET PO SCH (20:11)
[2020-05-27] VITALS: BP 118/24
[2020-05-27 04:00] VITALS: BP 145/68
[2020-05-27 08:00] VITALS: BP_SYST 115; BP_SYST 123; BP_DIAS 55; BP_DIAS 59
[2020-05-27] MEDS: CARVEDILOL 6.25 MG TABLET PO SCH ×2 (09:00→21:47)
[2020-05-27 09:09] LABS: HEMATOCRIT. 36.8 % (42.0-52.0); HEMOGLOBIN. 12.3 g/dL (14.0-18.0); MEAN CORPUSCULAR HEMOGLOBIN 33.3 pg (28.0-32.0); MEAN CORPUSCULAR VOLUME 99.5 fL (80.0-94.0); MEAN PLATELET VOLUME 8.7 fl (7.4-10.4); PLATELET 253 x1000/uL (130-400); RED CELL DISTRIBUTION WIDTH 13.6 % (11.6-14.6)
[2020-05-27] MEDS: THIAMINE HCL 100MG TABLET PO SCH (09:21)
[2020-05-27] MEDS: FOLIC ACID 1MG TABLET PO SCH (09:21)
[2020-05-27] MEDS: MAGNESIUM OXIDE 400MG TABLET PO SCH ×2 (09:21→21:46)
[2020-05-27] MEDS: MULTIVITAMINS,THER W-MINERALS TABLET PO SCH (09:21)
[2020-05-27] MEDS: DOCUSATE SODIUM 100MG CAPSULE PO SCH (09:21)
[2020-05-27] MEDS: TAMSULOSIN HCL 0.4MG SR CAPSULE PO SCH (09:21)
[2020-05-27] MEDS: LISINOPRIL 10MG TABLET PO SCH (09:21)
[2020-05-27] MEDS: DOXAZOSIN MESYLATE 2MG TABLET PO SCH ×2 (09:22→16:16)
[2020-05-27] MEDS: CLOPIDOGREL 75MG TABLET PO SCH (09:22)
[2020-05-27 09:43] LABS: CHLORIDE 104 mEq/L (98-107)
[2020-05-27 11:02] LABS: BG BASE EXCESS 3.1 mmol/L (-2.0-2.0); BG CARBOXYHEMOGLOBIN 0.5 % (0.5-1.5); BG DEOXYHEMOGLOBIN 4.7 % (0.0-5.0); BG FRACTION INSPIRED OXYGEN 21; BG HCO3 ACT 27.4 mmol/L (22.0-26.0); BG METHEMOGLOBIN 0.2 % (0.0-1.5); BG OXYGEN SATURATION 95.3 % (92.0-98.5); BG OXYHEMOGLOBIN 94.6 % (94.0-97.0); BG PCO2 40.8 mmHg (35.0-45.0); BG PH 7.445 (7.350-7.450); BG PO2 73.1 mmHg (75.0-100.0); BG SAMPLE SITE RIGHT RADIAL; BG TOTAL HEMOGLOBIN 12.3 g/dL (12.0-18.0); BG VENT MODE ROOM AIR
[2020-05-27 12:00] VITALS: BP 131/68
[2020-05-27 13:53] LABS: PLATELET ESTIMATE NORMAL
[2020-05-27 16:00] VITALS: BP 140/83
[2020-05-27] MEDS: RIVAROXABAN 20 MG TABLET PO SCH (16:16)
[2020-05-27] MEDS ORDERED: LEVOFLOXACIN 500MG TABLET PO NR (18:15)
[2020-05-27 20:00] VITALS: BP 93/61
[2020-05-27] MEDS: ATORVASTATIN CALCIUM 20MG TABLET PO SCH (21:46)
[2020-05-28] VITALS: BP 120/75
[2020-05-28 04:00] VITALS: BP 113/64
[2020-05-28 06:31] LABS: BASOPHILS % 0.7 % (0.0-2.0); EOSINOPHILS % 2.1 % (0.0-5.0); HEMATOCRIT. 34.8 % (42.0-52.0); HEMOGLOBIN. 11.9 g/dL (14.0-18.0); LYMPHOCYTES % 7.9 % (20.0-50.0); MEAN CORPUSCULAR HEMOGLOBIN 33.7 pg (28.0-32.0); MEAN CORPUSCULAR VOLUME 98.8 fL (80.0-94.0); MEAN PLATELET VOLUME 8.7 fl (7.4-10.4); MONOCYTES % 12.5 % (2.0-8.0); NEUTROPHILS % 76.8 % (40.0-76.0); PLATELET 228 x1000/uL (130-400); RED BLOOD CELL COUNT 3.52 mill/uL (4.7-6.1); RED CELL DISTRIBUTION WIDTH 13.4 % (11.6-14.6)
[2020-05-28] MEDS: CARVEDILOL 6.25 MG TABLET PO SCH ×2 (09:00→20:35)
[2020-05-28] MEDS: DOXAZOSIN MESYLATE 2MG TABLET PO SCH ×2 (09:00→17:50)
[2020-05-28] MEDS: LISINOPRIL 10MG TABLET PO SCH (09:00)
[2020-05-28] MEDS: MAGNESIUM OXIDE 400MG TABLET PO SCH ×2 (09:02→20:36)
[2020-05-28] MEDS: ASPIRIN 81MG TABLET PO SCH (09:02)
[2020-05-28] MEDS: TAMSULOSIN HCL 0.4MG SR CAPSULE PO SCH (09:02)
[2020-05-28] MEDS: CLOPIDOGREL 75MG TABLET PO SCH (09:02)
[2020-05-28] MEDS: DOCUSATE SODIUM 100MG CAPSULE PO SCH (09:03)
[2020-05-28] MEDS: THIAMINE HCL 100MG TABLET PO SCH (09:03)
[2020-05-28 12:00] VITALS: BP 132/59
[2020-05-28 16:00] VITALS: BP 114/69
[2020-05-28] MEDS: FOLIC ACID 1MG TABLET PO SCH (17:49)
[2020-05-28] MEDS: RIVAROXABAN 20 MG TABLET PO SCH (17:49)
[2020-05-28] MEDS: MULTIVITAMINS,THER W-MINERALS TABLET PO SCH (17:50)
[2020-05-28 20:00] VITALS: BP_SYST 110; BP_SYST 119; BP_DIAS 55; BP_DIAS 62
[2020-05-28] MEDS: ATORVASTATIN CALCIUM 20MG TABLET PO SCH (20:35)
[2020-05-29] VITALS: BP 105/56
[2020-05-29 04:00] VITALS: BP 122/73
[2020-05-29 08:00] VITALS: BP_SYST 109; BP_SYST 133; BP_DIAS 64; BP_DIAS 76
[2020-05-29] MEDS: DOCUSATE SODIUM 100MG CAPSULE PO SCH ×2 (09:00→09:39)
[2020-05-29] MEDS: CARVEDILOL 6.25 MG TABLET PO SCH (09:38)
[2020-05-29] MEDS: CLOPIDOGREL 75MG TABLET PO SCH (09:39)
[2020-05-29] MEDS: THIAMINE HCL 100MG TABLET PO SCH (09:39)
[2020-05-29] MEDS: FOLIC ACID 1MG TABLET PO SCH (09:39)
[2020-05-29] MEDS: DOXAZOSIN MESYLATE 2MG TABLET PO SCH ×2 (09:39→17:05)
[2020-05-29] MEDS: MAGNESIUM OXIDE 400MG TABLET PO SCH (09:39)
[2020-05-29] MEDS: TAMSULOSIN HCL 0.4MG SR CAPSULE PO SCH (09:39)
[2020-05-29] MEDS: MULTIVITAMINS,THER W-MINERALS TABLET PO SCH (09:40)
[2020-05-29 12:00] VITALS: BP 128/62
[2020-05-29 15:37] VITALS: BP 128/62
[2020-05-29] MEDS: RIVAROXABAN 20 MG TABLET PO SCH (17:05)
[2020-05-30 13:07] LABS: B HENSELAE IGG Negative titer (Neg:<1:320); B HENSELAE IGM Negative titer (Neg:<1:100); B QUINTANA IGG Negative titer (Neg:<1:320); B QUINTANA IGM Negative titer (Neg:<1:100)
[2020-05-31] MEDS ORDERED: ERGO500013 PO (04:56)
[2020-05-31] MEDS ORDERED: OLME40TA11 PO (04:56)
[2020-05-31] MEDS ORDERED: DOCU-272 PO (04:56)
[2020-05-31] MEDS ORDERED: RIVA20TA PO (04:56)
[2020-05-31] MEDS ORDERED: NITR0.4T (04:56)
[2020-05-31] MEDS ORDERED: ATOR20TA65 PO (04:56)
[2020-05-31] MEDS ORDERED: CARV6.2548 PO (04:56)
[2020-05-31] MEDS ORDERED: COR3 PO (04:56)
[2020-05-31] MEDS ORDERED: ALEN70TA68 (04:56)
[2020-05-31] MEDS ORDERED: ATOR40TA70 PO (04:56)
[2020-05-31] MEDS ORDERED: CLOP75TA33 PO (04:56)
[2020-05-31] MEDS ORDERED: DOXA2TAB2 PO (04:56)
== END 2020-05-29 17:20 | disposition home health service (06) | DRG 91 ==
LOC: OBSVTOIN 17:59 → 6WST 17:59 → 7WST 05-24 07:56 → 5WST 05-25 11:10
PROVIDERS: ADMIT Internal Medicine; ATTEND Internal Medicine
DX: G92 Toxic encephalopathy (principal); R53.2 Functional quadriplegia; E46 Unspecified protein-calorie malnutrition; F10.239 Alcohol dependence with withdrawal, unspecified; K59.2 Neurogenic bowel, not elsewhere classified; E87.1 Hypo-osmolality and hyponatremia; M50.01 Cervical disc disorder with myelopathy, high cervical region; G90.8 Other disorders of autonomic nervous system; R09.02 Hypoxemia; D69.6 Thrombocytopenia, unspecified; D72.829 Elevated white blood cell count, unspecified; E78.00 Pure hypercholesterolemia, unspecified; I10 Essential (primary) hypertension; I25.10 Atherosclerotic heart disease of native coronary artery without angina pectoris; I48.91 Unspecified atrial fibrillation; J44.9 Chronic obstructive pulmonary disease, unspecified; K59.00 Constipation, unspecified; K74.60 Unspecified cirrhosis of liver; M48.02 Spinal stenosis, cervical region; M48.061 Spinal stenosis, lumbar region without neurogenic claudication; N31.9 Neuromuscular dysfunction of bladder, unspecified; Z20.828 Contact with and (suspected) exposure to other viral communicable diseases; Z96.649 Presence of unspecified artificial hip joint; Z96.651 Presence of right artificial knee joint; Y90.8 Blood alcohol level of 240 mg/100 ml or more; R33.9 Retention of urine, unspecified; M72.0 Palmar fascial fibromatosis [Dupuytren]; E11.51 Type 2 diabetes mellitus with diabetic peripheral angiopathy without gangrene; S80.11XA Contusion of right lower leg, initial encounter; W18.39XA Other fall on same level, initial encounter; S80.12XA Contusion of left lower leg, initial encounter; Z88.0 Allergy status to penicillin; Z91.018 Allergy to other foods; Z68.32 Body mass index [BMI] 32.0-32.9, adult; Z79.01 Long term (current) use of anticoagulants; Z79.02 Long term (current) use of antithrombotics/antiplatelets; Z95.5 Presence of coronary angioplasty implant and graft; Y93.89 Activity, other specified; Y92.89 Other specified places as the place of occurrence of the external cause; Y99.8 Other external cause status; Z71.41 Alcohol abuse counseling and surveillance of alcoholic; Z03.818 Encounter for observation for suspected exposure to other biological agents ruled out
CPT/HCPCS: 36415; 36600; 71045; 80048; 80053; 82140; 82375; 82550; 82805; 83735; 84100; 84145; 85025; 86140; 86611; 87635; 92610; 93970; 97162; 97166; 97530; 97535; G0378